=== PATIENT | female | born 1965 | race Caucasian/White ===

== ENCOUNTER 2016-07-03 15:07 | Outpatient (CLI) ==
[2014-11-10 15:34] VITALS: BMI 37.8
[2016-07-03 15:40] LABS: BASOPHILS # (AUTO) 0.1 K/uL (0-0.2); BASOPHILS % (AUTO) 0.8 % (0.0-3.0); EOSINOPHILS # (AUTO) 0.3 K/ul (0.0-0.7); EOSINOPHILS % (AUTO) 2.9 % (0.0-7.0); HEMATOCRIT 41.5 % (37.0-47.0); HEMOGLOBIN 14.1 g/dl (12.0-16.0); IMMATURE GRANULOCYTE % (AUTO) 0.1 % (0.0-5.0); LYMPHOCYTES # (AUTO) 3.4 K/uL (0.60-3.4); LYMPHOCYTES % (AUTO) 38.1 (10.0-50.0); MEAN CORPUSCULAR HEMOGLOBIN 29.4 pg (27.0-31.0); MEAN CORPUSCULAR VOLUME 86.6 fl (81.0-99.0); MONOCYTES # (AUTO) 1.1 K/uL (0.4-2.0); MONOCYTES % (AUTO) 11.8 (0-10); NEUTROPHILS # (AUTO) 4.2 K/ul (2.0-6.9); NEUTROPHILS % (AUTO) 46.3; PLATELET COUNT 226 10^3/uL (140-440); RED BLOOD COUNT 4.79 10^6/ul (4.20-5.40); WHITE BLOOD COUNT 9.01 K/ul (4.6-10.2)
[2016-07-03 16:12] LABS: ALBUMIN 3.7 g/dL (3.4-5.0); ALBUMIN/GLOBULIN RATIO 1.12; ANION GAP 13.1; BILIRUBIN,TOTAL 0.38 mg/dL (0.00-1.20); CALCIUM 9.5 mg/dL (8.2-10.2); POTASSIUM 4.1 mmol/L (3.5-5.10)
[2016-07-03 16:13] LABS: BUN/CREATININE RATIO 19.73; CHOL/HDL RATIO 3.5 (4.5-5.5); CREATININE 0.76 mg/dL (0.60-1.30)
== END 2016-07-03 15:08 | disposition home or self-care (01) ==
LOC: LAB 15:07
PROVIDERS: ATTEND Emergency Medicine
DX: E11.9 Type 2 diabetes mellitus without complications (principal); I10 Essential (primary) hypertension; E78.5 Hyperlipidemia, unspecified
CPT/HCPCS: 36415; 80053; 80061; 83036; 84443; 85025

== ENCOUNTER 2017-01-29 13:14 | Outpatient (CLI) ==
[2014-11-10 15:34] VITALS: BMI 37.8
[2017-01-29 13:58] LABS: BASOPHILS # (AUTO) 0.1 K/uL (0-0.2); BASOPHILS % (AUTO) 0.7 % (0.0-3.0); EOSINOPHILS # (AUTO) 0.3 K/ul (0.0-0.7); EOSINOPHILS % (AUTO) 2.8 % (0.0-7.0); HEMATOCRIT 44.2 % (37.0-47.0); IMMATURE GRANULOCYTE % (AUTO) 0.4 % (0.0-5.0); LYMPHOCYTES # (AUTO) 3.6 K/uL (0.60-3.4); LYMPHOCYTES % (AUTO) 36.3 (10.0-50.0); MEAN CORPUSCULAR HEMOGLOBIN 29.5 pg (27.0-31.0); MEAN CORPUSCULAR HGB CONC 33.9 (31.8-35.4); MEAN CORPUSCULAR VOLUME 86.8 fl (81.0-99.0); MONOCYTES % (AUTO) 10.6 (0-10); NEUTROPHILS # (AUTO) 4.8 K/ul (2.0-6.9); NEUTROPHILS % (AUTO) 49.2; PLATELET COUNT 241 10^3/uL (140-440); RED BLOOD COUNT 5.09 10^6/ul (4.20-5.40); WHITE BLOOD COUNT 9.81 K/ul (4.6-10.2)
[2017-01-29 14:26] LABS: ALBUMIN 3.8 g/dL (3.4-5.0); ALBUMIN/GLOBULIN RATIO 1.09; ANION GAP 13.6; BILIRUBIN,TOTAL 0.57 mg/dL (0.00-1.20); BUN/CREATININE RATIO 18.98; CALCIUM 9.7 mg/dL (8.2-10.2); CHOL/HDL RATIO 3.5 (4.5-5.5); CREATININE 0.79 mg/dL (0.60-1.30); POTASSIUM 3.6 mmol/L (3.5-5.10); TOTAL PROTEIN 7.3 g/dL (6.4-8.2)
== END 2017-01-29 13:15 | disposition home or self-care (01) ==
LOC: LAB 13:14
PROVIDERS: ATTEND Emergency Medicine
DX: E78.5 Hyperlipidemia, unspecified (principal); E66.9 Obesity, unspecified; I10 Essential (primary) hypertension; Z90.13 Acquired absence of bilateral breasts and nipples
CPT/HCPCS: 36415; 80053; 80061; 83036; 84443; 85025

== ENCOUNTER 2017-02-18 13:34 | Outpatient (CLI) ==
[2014-11-10 15:34] VITALS: BMI 37.8
--- NOTE | 2017-02-18 14:28 | US ---
EXAM: THYROID ULTRASOUND HISTORY: Thyroid nodule FINDINGS: Ultrasound thyroid. Real time osman-scale ultrasound and color Doppler imaging. COMPARISON: 10/04/2013 The right thyroid lobe measures 4.6 x 2.2 x 1.5 cm. The isthmus measures 0.43 cm. The left thyroid lobe measures 4.2 x 1.6 x 1.3 cm. There is a 0.6 x 0.6 x 0.6 cm hypoechoic oval-shaped solid nodule in the mid right thyroid lobe with no internal microcalcification or hyperemia. There is a 0.5 x 0.4 x 0.5 cm hypoechoic solid nodule in the mid right thyroid lobe which may have a small amount of internal coarse calcification. No obvious hyperemia. There is a 0.7 x 0.4 x 0.5 cm lower right thyroid lobe nodule which is oval shaped, hypoechoic and so lid with no internal microcalcification or hyperemia. In the mid left lobe there is at 0.7 x 0.4 x 0.4 cm oval shaped hypoechoic solid nodule with no inter nal atypia. When compared to the prior exam and allowing for differences in scanning and measuring technique, the overall gland size is stable. The nodules identified previously do not appear noticeably changed. IMPRESSION: Grossly stable findings since 10/04/2013.
== END 2017-02-18 13:35 | disposition home or self-care (01) ==
LOC: RAD 13:34
PROVIDERS: ATTEND Emergency Medicine
DX: E04.1 Nontoxic single thyroid nodule (principal)

== ENCOUNTER 2017-05-25 16:07 | Outpatient (CLI) ==
[2014-11-10 15:34] VITALS: BMI 37.8
== END 2017-05-25 16:08 | disposition home or self-care (01) ==
LOC: LAB 16:07
PROVIDERS: ATTEND Emergency Medicine
DX: E11.9 Type 2 diabetes mellitus without complications (principal); E78.5 Hyperlipidemia, unspecified; I10 Essential (primary) hypertension; R35.0 Frequency of micturition
CPT/HCPCS: 36415; 80053; 80061; 81001; 83036; 84443; 85025; 87086

== ENCOUNTER 2017-07-31 16:16 | Observation (INO) | payer MEDICAID, OTHER ==
[2017-07-31] MEDS ORDERED: NORFLEX IM STA (16:27)
[2017-07-31] MEDS ORDERED: ATIVAN IM STA (16:27)
[2017-07-31] MEDS ORDERED: MORPHINE 4 MG/ML VIAL IVP PRN (16:29)
[2017-07-31] MEDS ORDERED: ATROPINE SULFATE PFS IVP PRN (16:29)
[2017-07-31] MEDS ORDERED: VISTARIL INJ IM PRN (16:29)
[2017-07-31] MEDS ORDERED: TYLENOL PO PRN (16:29)
[2017-07-31] MEDS ORDERED: NITROSTAT SL PRN (16:29)
[2017-07-31 17:22] VITALS: BMI 40.8
[2017-07-31] MEDS ORDERED: PROAIR HFA IH PRN (17:26)
[2017-07-31] MEDS ORDERED: SOMA PO PRN (17:26)
[2017-07-31] MEDS ORDERED: ATIVAN PO PRN (17:26)
[2017-07-31] MEDS ORDERED: JARDIANCE PO SCH (17:30)
[2017-07-31] MEDS: PROTONIX IV IVP SCH (17:46)
[2017-07-31] MEDS ORDERED: NORFLEX IM PRN (18:32)
[2017-07-31] MEDS: CARAFATE PO SCH (20:51)
[2017-07-31] MEDS ORDERED: NORVASC PO SCH (21:00)
[2017-07-31] MEDS ORDERED: GLUCOTROL PO SCH (21:00)
[2017-07-31] MEDS ORDERED: NON-FORMULARY MEDICATION (Simvastatin [Simvastatin] 40 MG) PO SCH (21:00)
[2017-08-01] MEDS: CARAFATE PO SCH ×2 (05:40→12:38)
--- NOTE | 2017-08-01 07:30 | DI ---
EXAM: PA and lateral views the chest HISTORY: Shortness of air COMPARISON: None available FINDINGS: No focal consolidation, pleural effusion or pneumothorax is seen. The cardiomediastinal silhouette is within normal limits. A hyperdensity projects over the aortic arc h which could represent calcified atherosclerotic plaque or an overlying surgical clip. Operative ch anges of the breasts are identified. Degenerative change of the spine are noted. IMPRESSION: No acute cardiopulmonary findings.
[2017-08-01] MEDS ORDERED: ASPIRIN EC PO SCH (08:00)
[2017-08-01] MEDS ORDERED: GLUCOTROL PO SCH (08:00)
[2017-08-01] MEDS: PROTONIX IV IVP SCH (08:42)
[2017-08-01] MEDS ORDERED: NON-FORMULARY MEDICATION (Duloxetine Hcl [Cymbalta] 60 MG) PO SCH (09:00)
[2017-08-01] MEDS ORDERED: CYMBALTA PO SCH ×2 (09:00)
[2017-08-01] MEDS ORDERED: TOPROL XL PO SCH (09:00)
[2017-08-01] MEDS ORDERED: NON-FORMULARY MEDICATION (Metoprolol Succinate [Toprol Xl] 100 MG) PO SCH (09:00)
[2017-08-01] MEDS ORDERED: NORFLEX PO SCH (09:00)
--- NOTE | 2017-08-01 12:48 | CT ---
EXAM: Noncontrast CT of the lumbar spine HISTORY: Lower back pain COMPARISON: 11/10/2014 TECHNIQUE: Noncontrast CT of the lumbar spine FINDINGS: The lumbar vertebral bodies are normal in height. No lumbar spine fractures are identified. Bilatera l L5-S1 posterior rakesh and transpedicular screw fixation is again seen with intact hardware. A screw i s again seen at the anterior aspect of the L5 vertebral body. An L5-S1 intervertebral disc spacer is seen. There is mild disc height loss at all lumbar levels. There is multilevel anterior osteophyte formation. There is 2 mm of posterior listhesis at L3-4, similar to the prior exam. Atherosclerotic calcifications are present. T12-L1: No disc bulge. No foraminal or spinal canal stenosis. L1-2: Posterior disc osteophyte complex. No foraminal stenosis. Mild spinal canal stenosis. L2-3: Diffuse disc osteophyte complex. Minimal facet arthropathy. Mild bilateral foraminal stenosis and mild to moderate spinal canal stenosis. L3-4: Diffuse disc osteophyte complex. Mild facet arthropathy. Mild right and moderate left foramin al stenosis. Moderate spinal canal stenosis. L4-5: Diffuse disc osteophyte complex. Moderate facet arthropathy. Moderate bilateral foraminal st enosis and moderate spinal canal stenosis. L5-S1: Suboptimal evaluation due to streak artifacts. Posterior spurring. Mild to moderate bilatera l foraminal stenosis and limited visualization of the spinal canal. IMPRESSION: No acute osseous abnormality. Status post L5-S1 fixation. Moderate multilevel degenerative disc disease. Similar multilevel foraminal and spinal canal stenosis as detailed above. Atherosclerosis.
--- NOTE | 2017-08-01 12:53 | CT ---
EXAM: Noncontrast CT of the thoracic spine HISTORY: Back pain COMPARISON: None available. TECHNIQUE: Noncontrast CT of the thoracic spine FINDINGS: The thoracic vertebral bodies are normal in height. No thoracic spine fractures are identified. The re is mild dextrocurvature of the thoracic spine. No significant listhesis is seen. There is minimal multilevel intervertebral disc height loss and multilevel anterior osteophyte formation. There is r emote fracture of the right ninth, tenth and eleventh posterior ribs. Atherosclerotic calcifications are present including the coronary arteries. There is minimal posterior osteophyte formation at T4-5 without significant stenosis. There is a tin y posterior central disc protrusion at T8-T9 without significant stenosis. There is a T11-12 tiny dis c osteophyte complex without significant stenosis. IMPRESSION: No acute osseous abnormality. Mild multilevel degenerative disc disease. Atherosclerosis. Remote right rib fractures.
[2017-08-01 14:12] VITALS: BP 122/74; TEMP 98.6
[2017-08-01] MEDS ORDERED: ZOCOR PO SCH (21:00)
--- NOTE | 2017-08-02 22:29 | PCM.HOSP ---
- Initial Hospital Care [id number] 70 Minutes Bedside ([id number]): 07/31 - Hospital Discharge [id number] More than 30 Minutes ([id number]): 08/01
--- NOTE | 2017-08-11 13:58 | DS ---
DATE OF SERVICE: 08/01/17 FINAL DIAGNOSIS: 1. Severe chest pain, right-sided. EKG and x-rays were negative most likely from the muscular spasms from the breast implants. 2. History of breast implants. 3. Diabetes Mellitus Type 2 4. Hypertension 5. Dyslipidemia 6. Anxiety disorder 7. Obesity (BMI 30.0 - 34.9) DISCHARGE INSTRUCTIONS: Followup appointment in [address] Yin at the clinic. MEDICATIONS AT DISCHARGE: Ecotrin so will stop Soma Ventolin Hfa Simvastatin Jardiance Glucotrol Toprol XL Amlodipine Cymbalta NEW PRESCRIPTIONS: Norflex 100 mg take one tablet twice a day DIET INSTRUCTIONS: Heart Healthy, ADA diet. ACTIVITY: Resume activities as tolerated. SMOKING: N/A DISEASE SPECIFIC EDUCATION: Chest pain Coronary artery disease been discussed HOSPITAL COURSE: This is a 52-year-old female who came to the office with severe right-sided chest pain, spasmatic type and hyperventilating with given history of diabetes, hypertension, admitted to the hospital. EKG was normal sinus. Cardiac enzymes were negative. Chest x-ray was negative. The patient was also complaining of mid back and lower back pain. The patient's cardiac enzymes were negative. CT scan did show old compression deformity on T4. The patient started feeling better. Norflex did help her. She says that it was like someone trying to hold her from behind where she can't breathe with the upper extremity and face with a numb feeling. Norflex really helped. The patient is on Soma. Advised her to stop the Soma and start taking Norflex. Continue the rest of the home medications. The pain was not cardiac in nature, more of a spasm and panic attack type. The patient was not evaluated for heart problems at this time as she will have outpatient workup. PLAN: 1. Discharge the patient home. TIME SPENT: MORE THAN 55 MINUTES MTDD
--- NOTE | 2017-08-11 15:22 | PN ---
DATE OF SERVICE: 08/01/17 SUBJECTIVE: The patient was admitted from the office yesterday for the severe chest tightness and pain. She attributes them as more of a spasm. The patient had breast reconstruction after having bilateral mastectomies and she has implants. She says pain feels like muscles are pulling her chest, she can not breathing and she gets tingling and numbness in the hands and the face. These episodes were helped with Norflex rather than Ativan or other medications. Severe back pain lower to the midback pain, no injuries and no falls. REVIEW OF SYSTEMS: CONSTITUTIONAL: No fever, no chills. HEENT: Normal. ENDOCRINE: No weight gain, no weight loss. CVS: No angina symptoms. No CHF symptoms. No palpitations. No atypical chest pain for CAD. No shortness of breath. No PND, no orthopnea. RESPIRATORY: No cough, no hemoptysis. GI: No nausea, no vomiting. No abdominal pain. : No hematuria. No polyuria. MUSCULOSKELETAL: No joint swelling. PSYCHIATRIC: Not anxious. No depression. No suicidal thoughts. No homicidal thoughts. SKIN: Intact. No rash. PHYSICAL EXAMINATION: V/S: Blood pressure 119/66, respiratory rate 18, heart rate 59, temperature 98.0 with saturation 98%. HEENT: Normocephalic, atraumatic. Mucosa dry. NECK: Supple. No JVD, no carotid bruit. No lymphadenopathy. LUNGS: Clear to auscultation. No rales or rhonchi. HEART: S1, S2 normal. No S3. No murmur, gallop or regurgitation. ABDOMEN: Soft, nontender. Bowel sounds active. No rigidity. No rebound or guarding. No CVA tenderness. EXTREMITIES: No pedal edema. No clubbing or cyanosis MUSCULOSKELETAL: No joint swelling. Paraspinal tenderness from the midback to the lower back. No rash. NEUROLOGIC: Awake, alert, oriented times three. No focal deficit. LYMPHATIC: No lymph nodes palpable. SKIN: Intact. LABS: WBC 11.18, hgb 15.4, hct 46.4, plt count 251, D-Dimer 334, Sodium 142, potassium 4.1, chloride 105, bicarb 24, BUN 15, creatinine 0.84 and glucose 147. ASSESSMENT: 1. Chest pain, most like from the muscular spasms rather than a cardiac 2. Diabetes 3. Hypertension uncontrolled 4. Obesity 5. Anxiety disorder 6. Depression 7. History of mastectomy with breast reconstruction with implants 8. Mid to lower back pain, severe PLAN: 1. Will get CT of lumbar spine and thoracic spine 2. Stop the IV Norflex 3. Started PO Norflex 4. Out of bed to chair activity as tolerated Will follow the patient in daily rounds. TIME SPENT: More than 35 minutes MTDD
== END 2017-08-01 14:16 | disposition home or self-care (01) ==
LOC: MEDSURG A 16:16
PROVIDERS: ADMIT Emergency Medicine; ATTEND Emergency Medicine
DX: R07.9 Chest pain, unspecified (principal); M62.838 Other muscle spasm; Z98.86 Personal history of breast implant removal; E11.9 Type 2 diabetes mellitus without complications; I10 Essential (primary) hypertension; E78.5 Hyperlipidemia, unspecified; F41.9 Anxiety disorder, unspecified; E66.9 Obesity, unspecified; M54.6 Pain in thoracic spine; M54.5 Low back pain; R06.4 Hyperventilation; R20.0 Anesthesia of skin; I70.90 Unspecified atherosclerosis; M48.061 Spinal stenosis, lumbar region without neurogenic claudication; F32.9 Major depressive disorder, single episode, unspecified; S22.040D Wedge compression fracture of fourth thoracic vertebra, subsequent encounter for fracture with routine healing
CPT/HCPCS: 36415; 80053; 81001; 82550; 82553; 82962; 84484; 85025; 85379; 93005; 93010

== ENCOUNTER 2017-10-14 16:51 | Outpatient (CLI) | payer MEDICAID, OTHER | END 2017-10-14 16:52 | disposition home or self-care (01) | LOC: RHC-LAB 16:51 | PROVIDERS: ATTEND Emergency Medicine | DX: E78.5 Hyperlipidemia, unspecified (principal); I10 Essential (primary) hypertension | CPT/HCPCS: 36415; 80061; 83036; 84443 ==

== ENCOUNTER 2017-12-09 12:18 | Outpatient (CLI) | END 2017-12-09 12:19 | disposition home or self-care (01) | LOC: RHC-LAB 12:18 | PROVIDERS: ATTEND Emergency Medicine | DX: E11.9 Type 2 diabetes mellitus without complications (principal); E78.5 Hyperlipidemia, unspecified; I10 Essential (primary) hypertension; F33.1 Major depressive disorder, recurrent, moderate | CPT/HCPCS: 36415; 80053; 80061; 83036; 84443; 85025 ==

== ENCOUNTER 2018-01-11 12:17 | Outpatient (CLI) | END 2018-01-11 12:18 | disposition home or self-care (01) | LOC: FCC-LAB 12:17 | PROVIDERS: ATTEND Family Medicine | DX: R53.82 Chronic fatigue, unspecified (principal); I10 Essential (primary) hypertension | CPT/HCPCS: 36415; 82550; 82553 ==

== ENCOUNTER 2018-01-25 06:40 | Outpatient (CLI) | payer MEDICAID, OTHER ==
--- NOTE | 2018-01-25 11:52 | ECHO2D ---
Date of Exam: 01/25/18 Ordering Physician: DR. CHEY JEFFERSON Room #: OP Reason for Echo: MVP, DYSPNEA M-Mode Normal Adult Results LV Dimensions Normal Adult Results AoV Opening excursions >1.6 >1.6 LVEDD-base- 3.5-5.8 3.9 Ao root dimensions 2.0-3.7 3.1 LVESD-base- 3.1-4.6 L. Atrium dimensions 1.9-3.8 3.5 Post. Wall thickness 0.8-1.1 1.2 IV septum (thickness) 0.7-1.2 1.2 Post. Wall excursion 0.72-1.3 NORMAL Septal motion NORMAL Systolic motion R. Ventricular cavity 1.5-2.0 NORMAL LVEF 60% 56% Paradoxical septal wall motion NORMAL 2-D : 2-D M Mode Echocardiogram was performed. Mitral valve prolapse noted using apical four chamber and left parasternal long and short axis views. Tricuspid and aortic valves appear to be normal. Contractility of the left ventricle seems to be normal, so is the cavity size. Left atrial cavity size and aortic root appear to be normal. There is no pericardial effusion. There is no thrombus noted in the left ventricular or left aortic cavity. No mitral valve prolapse noted. M-MODE: MV: MITRAL VALVE PROLAPSE NOTED AV: NORMAL TV: NORMAL PV: CHAMBER SIZE: NORMAL WALL MOTION: NORMAL PERICARDIUM: NORMAL INTERPRETATION: 1. BORDERLINE LEFT VENTRICULAR HYPERTROPHY 2. MITRAL VALVE PROLAPSE LATE SYSTOLIC 3. NORMAL LEFT VENTRICULAR CONTRACTILITY 4. NORMAL LEFT VENTRICLE AND LEFT ATRIAL SIZE MTDD
== END 2018-01-25 06:41 | disposition home or self-care (01) ==
LOC: CAR 06:40
PROVIDERS: ATTEND Family Medicine
DX: R06.09 Other forms of dyspnea (principal); I34.1 Nonrheumatic mitral (valve) prolapse

== ENCOUNTER 2018-03-01 06:47 | Outpatient (CLI) ==
--- NOTE | 2018-03-01 09:26 | STRESSECHO ---
Date of Test: 03/01/18 Ordering Physician: DR. CHEY JEFFERSON Occupation:UNEMPLOYED Reason for Exam: MVP, DYSPNEA WITH EXERTION Smoking History: QUIT 2000 Height : 61" Weight: 215 LBS Current Medications: PROVENTIL, LIPITOR, GLIPIZIDE, MOBIC, AMLODIPINE, TOPROL XL , SOMA, LORAZEPAM, ECOTRIN Resting EKG: SINUS RHYTHM/ NO ACUTE CHANGES Target Heart Rate: 141/166 S-T SEGMENT STAGE MPH/GRADE HEART RATE BPM BLOOD PRESSURE MMHG RHYTHM +/- ELEVATION DEPRESSION SYMPTOMS AT REST 64 BPM 144/96 MMHG SR X NONE 1 1.7/10% 105 BPM 140/70 MMHG SR X NONE 2 2.5/12% 3 3.4/14% 4 4.2/16% 5 5.0/18% Immediately After 127 BPM 160/76 MMHG SR X SOB Minutes Post Exercise 5:00 78 BPM 152/100 MMHG SR X NONE Minutes Post Exercise DURATION OF EXERCISE: 4:33 MAXIMUM HEART RATE REACHED: 127 BPM REASON FOR TERMINATION: SHORT OF BREATH 94% OXYGEN SATURATION WITH EXERCISE ON ROOM AIR METS 7.0 INTERPRETATION: 1. INCONCLUSIVE FOR ISCHEMIC ST-T WAVE CHANGES SHE DID NOT REACH TARGET HEART RATE (ON BETA MARCIA) 2. ISOLATED PVC'S --INFREQUENT AT REST/ INCREASED IN FREQUENCY WITH EXERCISE 3. NO CHEST PAIN OR DISCOMFORT 4. BLOOD PRESSURE RESPONSE: HYPERTENSION AT REST AND ADEQUATE RESPONSE WITH EXERCISE NORMAL LEFT VENTRICULAR CONTRACTILITY--RESTING AND POST EXERCISE SESTAMIBI MAY HELP WITH ISCHEMIA EVALUATION AND SKIPPING THE DOSE OF BETA MARCIA ON THE DAY OF TEST MTDD
--- NOTE | 2018-03-01 09:37 | ECHOSTRESS ---
Date of Exam: 03/01/18 Ordering Physician: DR. CHEY JEFFERSON Reason for Echo: MVP, DYSPNEA ON EXERTION, STRESS TEST--INCONCLUSIVE FOR ISCHEMIA M-Mode Normal Adult Results LV Dimensions Normal Adult Results AoV Opening excursions >1.6 LVEDD-base- 3.5-5.8 Ao root dimensions 2.0-3.7 LVESD-base- 3.1-4.6 L. Atrium dimensions 1.9-3.8 Post. Wall thickness 0.8-1.1 IV septum (thickness) 0.7-1.2 Post. Wall excursion 0.72-1.3 Septal motion Systolic motion R. Ventricular cavity 1.5-2.0 LVEF 60% Paradoxical septal wall motion 2-D: NORMAL LEFT VENTRICULAR CONTRACTILITY--RESTING AND POST EXERCISE M-MODE: MV: AV: TV: PV: CHAMBER SIZE: WALL MOTION: NORMAL LEFT VENTRICULAR CONTRACTILITY--RESTING AND POST EXERCISE PERICARDIUM: INTERPRETATION: 1. NORMAL LEFT VENTRICULAR CONTRACTILITY--RESTING AND POST EXERCISE MTDD
== END 2018-03-01 06:48 | disposition home or self-care (01) ==
LOC: CAR 06:47
PROVIDERS: ATTEND Family Medicine
DX: I34.1 Nonrheumatic mitral (valve) prolapse (principal); R06.09 Other forms of dyspnea

== ENCOUNTER 2018-05-07 13:16 | Outpatient (CLI) | END 2018-05-07 13:17 | disposition home or self-care (01) | LOC: RHC-LAB 13:16 | PROVIDERS: ATTEND Family Medicine | DX: E04.1 Nontoxic single thyroid nodule (principal); R53.82 Chronic fatigue, unspecified | CPT/HCPCS: 36415; 80053; 80061; 83037; 84436; 84439; 84443; 85025 ==

== ENCOUNTER 2018-05-14 15:32 | Outpatient (CLI) ==
--- NOTE | 2018-05-14 16:48 | US ---
EXAM: Thyroid ultrasound History: Follow-up thyroid nodules. Comparison: Thyroid ultrasound 02/18/2017 Technique: Multiple sonographic images through the thyroid gland were obtained. Color duplex Dopple r was used to interrogate vascular flow. Findings: The right lobe of the thyroid measures 5.1 cm x 1.7 cm x 1.5 cm and again demonstrates multiple nodul es with the largest being solid and measuring 0.7 cm not significantly changed compared to the prior study. The thyroid isthmus measures 0.6 cm in thickness. The left lobe of the thyroid measures 4.7 cm x 1.5 cm x 1.5 cm demonstrates a 0.8 cm solid nodule nicole t is not significantly changed compared to the prior study. There is a 1.3 cm x 0.6 cm x 0.7 cm poss ible nodule within the mid pole versus heterogeneous thyroid tissue. No extrathyroidal masses are identified. The thyroid gland is not hypervascular. Impression: Possible new 1.3 cm nodule within the mid pole of the left thyroid gland versus heteroge neous thyroid tissue. Recommend follow-up ultrasound in 6 months to document stability.
== END 2018-05-14 15:33 | disposition home or self-care (01) ==
LOC: RAD 15:32
PROVIDERS: ATTEND Family Medicine
DX: E04.1 Nontoxic single thyroid nodule (principal)

== ENCOUNTER 2018-05-19 15:50 | Outpatient (CLI) | payer MEDICAID, OTHER | END 2018-05-19 15:51 | disposition home or self-care (01) | LOC: RHC-LAB 15:50 → FCC-LAB 15:51 | PROVIDERS: ATTEND Nurse Practitioner Family | DX: E11.9 Type 2 diabetes mellitus without complications (principal) | CPT/HCPCS: 82043 ==

== ENCOUNTER 2018-08-02 12:46 | Outpatient (CLI) | END 2018-08-02 12:47 | disposition home or self-care (01) | LOC: LAB 12:46 | PROVIDERS: ATTEND Nurse Practitioner Family | DX: R73.09 Other abnormal glucose (principal); E11.9 Type 2 diabetes mellitus without complications; I10 Essential (primary) hypertension | CPT/HCPCS: 36415; 80053; 83036 ==

== ENCOUNTER 2018-08-31 13:37 | Outpatient (CLI) ==
[2018-08-31 15:12] VITALS: BMI 40.4
== END 2018-08-31 13:38 | disposition home or self-care (01) ==
LOC: DIETCN 13:37
PROVIDERS: ATTEND Nurse Practitioner Family
DX: E11.9 Type 2 diabetes mellitus without complications (principal); Z68.41 Body mass index [BMI] 40.0-44.9, adult